=== PATIENT | male | born 1995 | race Caucasian/White ===

== ENCOUNTER 2018-02-07 21:16 | Emergency (ER) | payer SELFPAY ==
[2018-02-07] MEDS ORDERED: Sodium Chloride 0.9% 1,000 ML IV ONE (21:47)
[2018-02-07] MEDS ORDERED: Sodium Chloride 0.9% 1,000 ML ONE (22:02)
[2018-02-07 22:04] LABS: BASO % 0.2 % (0.0-2.0); EOS # 0.1 K/uL (0.0-0.7); EOS % 0.7 % (0.0-4.0); HEMOGLOBIN 14.9 g/dL (12.0-18.0); LYMPH # 1.8 K/uL (1.0-4.3); LYMPH % 21.3 % (20.0-40.0); MEAN CORPUSCULAR HEMOGLOBIN 29.9 pg (27.0-31.0); MEAN CORPUSCULAR HGB CONC 33.6 g/dL (33.0-37.0); MEAN PLATELET VOLUME 9.6 fL (7.2-11.7); MONO # 0.4 K/uL (0.0-0.8); NEUT # 6.1 K/uL (1.8-7.0); NEUT % 72.8 % (50.0-75.0); RBC 4.99 Mil/uL (4.40-5.90); WHITE BLOOD COUNT 8.3 K/uL (4.8-10.8)
[2018-02-07 22:15] LABS: ALB/GLOB RATIO 1.7 (1.0-2.1); ALBUMIN 4.7 g/dL (3.5-5.0); ALT/SGPT 27 U/L (21-72); AST/SGOT 22 U/L (17-59); BLOOD UREA NITROGEN 26 mg/dL (9-20); CALCIUM 9.3 mg/dl (8.6-10.4); GFR NON-AFRICAN AMERICAN > 60; LIPASE 62 U/L (23-300)
[2018-02-07 22:17] LABS: URINE BILIRUBIN NEGATIVE (NEGATIVE); URINE BLOOD NEGATIVE (NEGATIVE); URINE CLARITY Clear (Clear); URINE COLOR Yellow (YELLOW); URINE GLUCOSE (UA) NORMAL (Normal); URINE LEUKOCYTE ESTERASE NEG Leu/uL (Negative); URINE PROTEIN NEGATIVE (NEGATIVE)
--- NOTE | 2018-02-07 22:31 | C.PDOC ---
History Of Present Illness 22 year old male presents to the ER with a complaint of a constant sharp epigastric pain for the past 2-3 days. Patient reports having a Hx of similar episodes in the past that resolved spontaneously and notes the pain worsened after eating. Denies nausea, vomiting, diarrhea, or dysuria. Time Seen by Provider: 02/07/18 21:34 Chief Complaint (Nursing): Abdominal Pain History Per: Patient History/Exam Limitations: no limitations Onset/Duration Of Symptoms: Days (2-3) Current Symptoms Are (Timing): Still Present Location Of Pain/Discomfort: Epigastric Radiation Of Pain To:: None Quality Of Discomfort: Sharp Associated Symptoms: denies: Nausea, Vomiting, Diarrhea, Urinary Symptoms Exacerbating Factors: Food Alleviating Factors: None Recent travel outside of the [place]: No Past Medical History Reviewed: Historical Data, Nursing Documentation, Vital Signs Vital Signs: Last Vital Signs Temp 97.5 F L 02/07/18 21:25 Pulse 60 02/07/18 21:25 Resp 16 02/07/18 21:25 BP 134/81 02/07/18 21:25 Pulse Ox 97 02/07/18 21:25 Family History: States: Unknown Family Hx - Social History Hx Alcohol Use: Yes Hx Substance Use: No - Immunization History Hx Tetanus Toxoid Vaccination: No Hx Influenza Vaccination: No Hx Pneumococcal Vaccination: No Review Of Systems Except As Marked, All Systems Reviewed And Found Negative. Gastrointestinal: Positive for: Abdominal Pain Physical Exam - Physical Exam Appears: Non-toxic, Other (Mild distress) Skin: Normal Color, Warm, Dry Head: Atraumatic, Normacephalic Eye(s): bilateral: Normal Inspection Oral Mucosa: Moist Neck: Normal, Supple Chest: Symmetrical, No Tenderness Cardiovascular: Rhythm Regular Respiratory: Normal Breath Sounds, No Rales, No Rhonchi, No Wheezing Gastrointestinal/Abdominal: Soft, Tenderness (Epigastric), No Guarding, No Rebound Back: No CVA Tenderness Neurological/Psych: Oriented x3, Normal Speech ED Course And Treatment - Laboratory Results Result Diagrams: 02/07/18 21:58 02/07/18 21:58 O2 Sat by Pulse Oximetry: 97 (Room air) Pulse Ox Interpretation: Normal Progress Note: Blood work and urinalysis ordered. Pepcid and IV fluids administered. Disposition Counseled Patient/Family Regarding: Studies Performed, Diagnosis, Need For Followup, Rx Given - Disposition Referrals: Arnold Bhandari MD [Staff Provider] - Disposition: HOME/ ROUTINE Disposition Time: 23:30 Condition: STABLE Additional Instructions: FOLLOW UP WITH FINANCE ADMINISTRATOR WITHIN 1 WEEK USE MEDICAITON DAILY RETURN TO ER IF SYMPTOMS WORSEN Prescriptions: Pantoprazole [Protonix EC Tab] 20 mg PO DAILY #30 ect Instructions: Acute Abdomen (Belly Pain), Adult (DC) Forms: [employer] (Greek), General Discharge Instructions Print Language: FAROESE - POA Present On Arrival: None - Clinical Impression Clinical Impression: Epigastric abdominal pain - Scribe Statement The provider has reviewed the documentation as recorded by the Scribe Nic Akhtar All medical record entries made by the Janiibe were at my direction and personally dictated by me. I have reviewed the chart and agree that the record accurately reflects my personal performance of the history, physical exam, medical decision making, and the department course for this patient. I have also personally directed, reviewed, and agree with the discharge instructions and disposition.
[2018-02-07] MEDS ORDERED: Alum-Mag Hydrox-Simethicone Susp (30 mL) PO STA (23:03)
[2018-02-07] MEDS ORDERED: Alum-Mag Hydrox-Simethicone Susp (30 mL) ONE (23:27)
[2018-02-07 23:57] VITALS: BP 130/76; PULSE 78; RESP 20; TEMP 97.6; O2SAT 96
== END 2018-02-08 00:02 | disposition home or self-care (01) ==
LOC: C.ER 21:16
DX: R10.13 Epigastric pain (principal)
CPT/HCPCS: 80053; 81001; 83690; 85025; 96361; 96374; 99284; J7030